=== PATIENT | male | born 1990 | race Caucasian/White ===

== ENCOUNTER 2019-04-29 12:46 | Emergency (ER) | payer SELFPAY ==
[~2019-04-29] VITALS: Ht 172.7 cm; Wt 82.0 kg
[2019-04-29 14:41] VITALS: BP 121/92
== END 2019-04-29 16:51 | disposition left against medical advice (07) ==
LOC: ER 14:21
DX: R07.89 Other chest pain (principal); Z53.21 Procedure and treatment not carried out due to patient leaving prior to being seen by health care provider